=== PATIENT | female | born 1940 | race Caucasian/White ===

== ENCOUNTER 2017-01-03 14:33 | Emergency (ER) | payer OTHER ==
[~2017-01-03] VITALS: Ht 162.6 cm; Wt 58.4 kg
[2017-01-03 15:54] LABS: BACTERIA NONE SEEN /HPF; CASTS NONE SEEN /LPF; CRYSTALS NONE SEEN; EPITHELIAL CELLS RARE /HPF; MUCUS NONE SEEN /LPF; RED BLOOD CELLS 0-5 /HPF (0-5); WHITE BLOOD CELLS RARE /HPF (0-5)
[2017-01-03 16:17] LABS: BASOPHIL COUNT 0.1 K/uL (0-0.1); EOSINOPHIL (%) 0.6 % (0-5); EOSINOPHIL COUNT 0.1 K/uL (0-0.3); HEMATOCRIT 41.2 % (36.0-46.0); IMMATURE GRANULOCYTE (%) 0.2 % (0.0-0.7); IMMATURE GRANULOCYTE COUNT 0.2 K/uL; LYMPHOCYTE COUNT 3.1 K/uL (1.0-2.8); MCH 29.4 PG (29.0-34.0); MCHC 33.3 G/DL (30.0-36.0); MCV 88.4 FL (83-99); MEAN PLAT.VOLUME 9.8 uM^3 (9.5-12.4); MONOCYTE COUNT 0.8 K/uL (0-0.8); NEUTROPHIL COUNT 6.9 K/uL (1.8-6.4); PLATELET COUNT 392 K/uL (156-360); RBC DIS.WIDTH-CV 13.3 % (11.8-14.6); RBC DIS.WIDTH-SD 41.9 % (39-53); RED BLOOD COUNT 4.66 M/uL (3.80-5.20); WHITE BLOOD COUNT 10.9 K/uL (4.1-10.2)
[2017-01-03 16:49] VITALS: BP 116/69
[2017-01-03 17:00] LABS: CHLORIDE 103 mEq/L (99-109); POTASSIUM 4.3 mEq/L (3.7-5.4); SODIUM 137 mEq/L (136-147)
[2017-01-03 17:02] LABS: GLUCOSE 90 mg/dL (70-99)
[2017-01-03 17:03] LABS: ANION GAP 7 MEQ/L (2-14)
[2017-01-03 17:04] LABS: TOTAL BILIRUBIN 0.4 mg/dL (0.0-1.0)
[2017-01-03 17:05] LABS: ALKALINE PHOSPHATASE 53 IU/L (3-129)
[2017-01-03 17:06] LABS: GFR ESTIMATE (CALCULATED) > 59 mL/min/
[2017-01-03 17:07] LABS: UREA NITROGEN (BUN) 13 mg/dL (9-23)
[2017-01-03 17:09] LABS: LIPASE 22 U/L (1.0-51.0)
== END 2017-01-03 19:22 | disposition home or self-care (01) ==
LOC: EME 14:33
PROVIDERS: Physician Assistant
DX: K57.90 Diverticulosis of intestine, part unspecified, without perforation or abscess without bleeding (principal); R10.2 Pelvic and perineal pain; R30.0 Dysuria
CPT/HCPCS: 74176; 80053; 81003; 83690; 85025; 99281; 99284

== ENCOUNTER 2017-08-11 11:57 | Emergency (ER) | payer OTHER ==
[~2017-08-11] VITALS: Ht 162.6 cm; Wt 57.2 kg
[2017-08-11 12:40] LABS: HEMATOCRIT 42.8 % (36.0-46.0); MCH 29.1 PG (29.0-34.0); MCHC 32.9 G/DL (30.0-36.0); MCV 88.2 FL (83-99); MEAN PLAT.VOLUME 9.8 uM^3 (9.5-12.4); PLATELET COUNT 363 K/uL (156-360); RBC DIS.WIDTH-CV 12.7 % (11.8-14.6); RBC DIS.WIDTH-SD 41.2 % (39-53); RED BLOOD COUNT 4.85 M/uL (3.80-5.20); WHITE BLOOD COUNT 10.2 K/uL (4.1-10.2)
[2017-08-11 12:51] LABS: CHLORIDE 100 mEq/L (99-109); POTASSIUM 4.4 mEq/L (3.7-5.4); SODIUM 135 mEq/L (136-147)
[2017-08-11 12:53] LABS: GLUCOSE 94 mg/dL (70-99)
[2017-08-11 12:55] LABS: ANION GAP 11 MEQ/L (2-14)
[2017-08-11 12:57] LABS: GFR ESTIMATE (CALCULATED) > 59 mL/min/
[2017-08-11 12:58] LABS: UREA NITROGEN (BUN) 11 mg/dL (9-23)
[2017-08-11 13:03] LABS: TROP-I INTERPRETATION NEGATIVE; TROPONIN-I < 0.01 ng/mL (0.0-0.30)
[2017-08-11 13:21] LABS: ADD MIUA? YES; BILIRUBIN NEGATIVE; BLOOD NEGATIVE; COLOR STRAW ((YELLOW)); GLUCOSE (STRIP) NEGATIVE; KETONES NEGATIVE; LEUKOCYTES SMALL; NITRITE NEGATIVE; PROTEIN (STRIP) NEGATIVE; SPECIFIC GRAVITY 1.008 (1.000-1.030); UROBILINOGEN 0.2 MG/DL (0.2-1.0)
[2017-08-11 13:25] LABS: BACTERIA RARE /HPF; EPITHELIAL CELLS RARE /HPF; MUCUS NONE SEEN /LPF; RED BLOOD CELLS 0-5 /HPF (0-5)
[2017-08-11] MEDS ORDERED: MACROBID100 MG PO (14:48)
[2017-08-11 15:04] VITALS: BP 123/75
== END 2017-08-11 15:06 | disposition home or self-care (01) ==
LOC: EME 11:57
PROVIDERS: Physician Assistant
DX: N39.0 Urinary tract infection, site not specified (principal); I95.1 Orthostatic hypotension; R01.1 Cardiac murmur, unspecified; Z90.81 Acquired absence of spleen; Z90.49 Acquired absence of other specified parts of digestive tract
CPT/HCPCS: 71020; 80048; 81003; 84443; 84484; 85027; 93005; 99281; 99284

== ENCOUNTER 2017-09-14 11:24 | Emergency (ER) | payer OTHER ==
[~2017-09-14] VITALS: Ht 162.6 cm; Wt 57.2 kg
[~2017-09-14 11:24] MED LIST: MACROBID100 MG PO
[2017-09-14 12:51] LABS: HEMATOCRIT 43.3 % (36.0-46.0); MCH 29.6 PG (29.0-34.0); MCHC 33.3 G/DL (30.0-36.0); MCV 89.1 FL (83-99); MEAN PLAT.VOLUME 9.8 uM^3 (9.5-12.4); PLATELET COUNT 350 K/uL (156-360); RBC DIS.WIDTH-CV 12.8 % (11.8-14.6); RBC DIS.WIDTH-SD 41.9 % (39-53); RED BLOOD COUNT 4.86 M/uL (3.80-5.20); WHITE BLOOD COUNT 7.1 K/uL (4.1-10.2)
[2017-09-14 13:09] LABS: CHLORIDE 98 mEq/L (99-109); POTASSIUM 4.7 mEq/L (3.7-5.4); SODIUM 134 mEq/L (136-147)
[2017-09-14 13:11] LABS: GLUCOSE 86 mg/dL (70-99)
[2017-09-14 13:12] LABS: ANION GAP 9 MEQ/L (2-14)
[2017-09-14 13:13] LABS: TOTAL BILIRUBIN 0.4 mg/dL (0.0-1.0)
[2017-09-14 13:15] LABS: ALKALINE PHOSPHATASE 64 IU/L (3-129); GFR ESTIMATE (CALCULATED) > 59 mL/min/
[2017-09-14 13:16] LABS: UREA NITROGEN (BUN) 11 mg/dL (9-23)
[2017-09-14 13:18] LABS: LIPASE 21 U/L (1.0-51.0)
[2017-09-14 16:29] LABS: ADD MIUA? YES; BILIRUBIN NEGATIVE; BLOOD NEGATIVE; COLOR YELLOW ((YELLOW)); GLUCOSE (STRIP) NEGATIVE; KETONES NEGATIVE; LEUKOCYTES TRACE; NITRITE NEGATIVE; PROTEIN (STRIP) NEGATIVE; UROBILINOGEN 0.2 MG/DL (0.2-1.0)
[2017-09-14 16:35] LABS: BACTERIA RARE /HPF; EPITHELIAL CELLS RARE /HPF; HYALINE CASTS 0-5 /LPF; MUCUS TRACE /LPF; RED BLOOD CELLS 0-5 /HPF (0-5); UCUL ADDED? YES
[2017-09-14 17:14] VITALS: BP 109/65
== END 2017-09-14 17:16 | disposition home or self-care (01) ==
LOC: EME 11:24
DX: R10.30 Lower abdominal pain, unspecified (principal); K57.30 Diverticulosis of large intestine without perforation or abscess without bleeding
CPT/HCPCS: 74177; 80053; 81003; 83690; 85027; 87086; 99281; 99285; J7030

== ENCOUNTER 2018-02-05 16:14 | Emergency (ER) | payer OTHER ==
[~2018-02-05] VITALS: Ht 160 cm; Wt 54.0 kg
[2018-02-05 17:06] LABS: ALBUMIN 4.1 g/dL (3.2-4.8); CHLORIDE 96 mEq/L (99-109); POTASSIUM 4.4 mEq/L (3.7-5.4); SODIUM 134 mEq/L (136-147)
[2018-02-05 17:08] LABS: GLUCOSE 98 mg/dL (70-99)
[2018-02-05 17:10] LABS: TOTAL BILIRUBIN 0.5 mg/dL (0.0-1.0)
[2018-02-05 17:12] LABS: ALKALINE PHOSPHATASE 56 IU/L (3-129); CREATININE 0.8 mg/dL (0.6-1.3); GFR ESTIMATE (CALCULATED) > 59 mL/min/
[2018-02-05 17:13] LABS: UREA NITROGEN (BUN) 8 mg/dL (9-23)
[2018-02-05 17:14] LABS: AST (GOT) 18 IU/L (2-34)
[2018-02-05 17:15] LABS: ALT (GPT) 13 IU/L (3-49)
[2018-02-05 17:16] LABS: HEMATOCRIT 41.6 % (36.0-46.0); HEMOGLOBIN 14.3 G/DL (11.9-15.5); MCH 30.1 PG (29.0-34.0); MCHC 34.4 G/DL (30.0-36.0); MCV 87.6 FL (83-99); PLATELET COUNT 417 K/uL (156-360); RBC DIS.WIDTH-CV 12.7 % (11.8-14.6); RBC DIS.WIDTH-SD 40.5 % (39-53); RED BLOOD COUNT 4.75 M/uL (3.80-5.20); WHITE BLOOD COUNT 8.2 K/uL (4.1-10.2)
[2018-02-05 17:39] LABS: APPEARANCE CLEAR ((CLEAR)); BILIRUBIN NEGATIVE; BLOOD NEGATIVE; COLOR YELLOW ((YELLOW)); GLUCOSE (STRIP) NEGATIVE; KETONES 5; LEUKOCYTES SMALL; NITRITE NEGATIVE; PROTEIN (STRIP) NEGATIVE; SPECIFIC GRAVITY 1.014 (1.000-1.030)
[2018-02-05 17:46] LABS: BACTERIA NONE SEEN /HPF; EPITHELIAL CELLS RARE /HPF; MUCUS 1+ /LPF; RED BLOOD CELLS 0-5 /HPF (0-5); UCUL ADDED? YES
[2018-02-05] MEDS ORDERED: KEFLEX500 MG PO (20:09)
[2018-02-05 20:14] LABS: THYROTROPIN (TSH) 0.56 MIU/L (0.4-5.5)
[2018-02-05 20:34] VITALS: BP 115/70
== END 2018-02-05 20:49 | disposition home or self-care (01) ==
LOC: EME 16:14
PROVIDERS: Emergency Medicine
DX: N39.0 Urinary tract infection, site not specified (principal); R53.1 Weakness
CPT/HCPCS: 80053; 81003; 82140; 84443; 85027; 87086 GA; 93005; 99281; 99284

== ENCOUNTER 2018-03-11 21:14 | Emergency (ER) | payer OTHER ==
[~2018-03-11] VITALS: Ht 160 cm; Wt 55.2 kg
[~2018-03-11 21:14] MED LIST changes: +KEFLEX500 MG PO
[2018-03-11 22:38] VITALS: BP 116/66
== END 2018-03-11 22:39 | disposition home or self-care (01) ==
LOC: EME → EDBD 21:14 → EME 21:14
DX: T78.40XA Allergy, unspecified, initial encounter (principal); Z90.49 Acquired absence of other specified parts of digestive tract
CPT/HCPCS: 99281; 99284